=== PATIENT | female | born 1950 | race Caucasian/White ===

== ENCOUNTER 2017-03-14 20:49 | Outpatient (CLI) | payer MEDICARE, OTHER | END 2017-03-14 20:50 | disposition home or self-care (01) | DX: I83.018 Varicose veins of right lower extremity with ulcer other part of lower leg (principal); M79.604 Pain in right leg ==

== ENCOUNTER 2024-07-06 11:34 | Outpatient (CLI) | payer MEDICARE, OTHER ==
--- NOTE | 2024-07-06 14:52 | XRAY Report ---
PROCEDURE: Foot 3+V BL (Weight Bearing) INDICATIONS: BILATERAL FOOT PAIN TECHNIQUE: 3 views of the feet were acquired. COMPARISON: Right foot dated 09/06/2015. FINDINGS: Bones: No fractures or dislocations. Right plantar calcaneal spur. Mild hallux valgus deformity bila terally especially the right. Right bunion noted. 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 Soft tissues: The foreign bodies projecting over the left fourth and fifth digits are likely external to the patient. 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
== END 2024-07-06 11:35 | disposition home or self-care (01) ==
LOC: DI 11:34
PROVIDERS: ATTEND Podiatrist
DX: M20.12 Hallux valgus (acquired), left foot (principal); M20.11 Hallux valgus (acquired), right foot; M19.072 Primary osteoarthritis, left ankle and foot; M19.071 Primary osteoarthritis, right ankle and foot; M77.31 Calcaneal spur, right foot

== ENCOUNTER 2024-07-09 08:00 | Outpatient (CLI) | payer MEDICARE, OTHER | END 2024-07-09 23:59 | disposition home or self-care (01) | LOC: LAB.N 08:00 | PROVIDERS: ATTEND Nurse Practitioner | DX: J02.9 Acute pharyngitis, unspecified (principal) | CPT/HCPCS: 87070 ==